=== PATIENT | female | born 1985 ===

== ENCOUNTER 2017-01-09 23:38 | Emergency (ER) | payer SELFPAY ==
[2017-01-10 00:05] VITALS: BMI 22.8
[2017-01-10 00:06] VITALS: BP 114/82; TEMP 98.1
--- NOTE | 2017-01-10 00:23 | ED PDOC ---
Arrival/HPI - General Chief Complaint: Headache Time Seen by Provider: 01/10/17 00:01 Historian: Patient - History of Present Illness Narrative History of Present Illness (Text): 01/10/17 00:19 This 31 yo female presents to this ED c/o nasal congestion, sinuses pressure x 2 weeks. Patient stated symptoms has worsen today. She stated she use Afrin only once today. Denies sob, cp, rash, sore throat, dysphagia, or abnormal agit. Time/Duration: Other (2 weeks) Context: Home Past Medical History - Provider Review Nursing Documentation Reviewed: Yes - Psychiatric Hx Substance Use: No - Anesthesia Hx Anesthesia: No Family/Social History - Physician Review Nursing Documentation Reviewed: Yes Family/Social History: No Known Family HX Smoking Status: Never Smoked Hx Alcohol Use: No Hx Substance Use: No Allergies/Home Meds Allergies/Adverse Reactions: Allergies No Known Allergies Allergy (Verified 01/10/17 00:04) Home Medications: Home Meds Medication Instructions Recorded Confirmed Loratadine/Pseudoephedrine 1 tab PO PRN PRN 01/10/17 01/10/17 [Claritin-D 24 Hour Tablet] Review of Systems - Review of Systems Constitutional: Normal. absent: Fatigue, Weight Change, Fevers Eyes: Normal ENT: Rhinorrhea, Sinus Congestion Respiratory: Normal. absent: SOB, Cough, Sputum, Wheezing Cardiovascular: Normal. absent: Chest Pain, Palpitations Gastrointestinal: Normal Genitourinary Female: Normal Musculoskeletal: Normal Skin: Normal Neurological: Normal Endocrine: Normal Hemo/Lymphatic: Normal Psychiatric: Normal Physical Exam Vital Signs Temp Pulse Resp BP Pulse Ox 01/10/17 00:05 98.1 F 100 H 15 114/82 100 Temperature: Afebrile Blood Pressure: Normal Pulse: Regular Respiratory Rate: Normal Appearance: Positive for: Well-Appearing, Non-Toxic, Comfortable Pain Distress: None Mental Status: Positive for: Alert and Oriented X 3 - Systems Exam Head: Present: Atraumatic, Normocephalic Pupils: Present: PERRL Extroacular Muscles: Present: EOMI Conjunctiva: Present: Normal Ears: Present: Normal, NORMAL TM, Normal Canal. No: Erythema, TM Bulging Mouth: Present: Moist Mucous Membranes, Normal Lips, Normal Tounge, Normal Teeth. No: Drooling Pharnyx: Present: Normal. No: ERYTHEMA, EXUDATE, TONSILS ENLARGED Nose (External): Present: Atraumatic Nose (Internal): Present: Rhinorrhea Neck: Present: Normal Range of Motion Respiratory/Chest: Present: Clear to Auscultation, Good Air Exchange. No: Respiratory Distress, Accessory Muscle Use Cardiovascular: Present: Regular Rate and Rhythm, Normal S1, S2. No: Murmurs Abdomen: Present: Normal Bowel Sounds. No: Tenderness, Distention, Peritoneal Signs Back: Present: Normal Inspection. No: CVA Tenderness Upper Extremity: Present: Normal Inspection. No: Cyanosis, Edema Lower Extremity: Present: Normal Inspection. No: Edema Neurological: Present: GCS=15, CN II-XII Intact, Speech Normal Skin: Present: Warm, Dry, Normal Color. No: Rashes Psychiatric: Present: Alert, Oriented x 3, Normal Insight, Normal Concentration Medical Decision Making ED Course and Treatment: 01/10/17 01:24 Re-evaluation. Patient feels better. Discussed results and plan with patient who expresses understanding. All questions answered and there is agreement with the plan to discharge home with instructions. Patient stable for discharge. Return if symptoms persist or worsen. Re-evaluation Time: 01:24 Reassessment Condition: Re-examined, Improved - Medication Orders Current Medication Orders: Discontinued Medications Azithromycin (Zithromax) 500 mg PO STAT STA PRN Reason: Protocol Stop: 01/10/17 00:24 Last Admin: 01/10/17 00:39 Dose: 500 MG Prednisone (Prednisone Tab) 60 mg PO STAT ONE Stop: 01/10/17 00:24 Last Admin: 01/10/17 00:38 Dose: 60 MG Disposition/Present on Arrival - Present on Arrival Any Indicators Present on Arrival: No History of DVT/PE: No History of Uncontrolled Diabetes: No Urinary Catheter: No History of Decub. Ulcer: No History Surgical Site Infection Following: None - Disposition Have Diagnosis and Disposition been Completed?: Yes Diagnosis: Sinusitis Disposition: HOME/ ROUTINE Disposition Time: 01:25 Patient Plan: Discharge Condition: GOOD Discharge Instructions (ExitCare): Sinusitis (ED) Additional Instructions: Call private doctor for follow up visit in 1-2 days. take medication as instructed. return to emergency if symptoms worsen. Prescriptions: Prednisone [Deltasone] 60 mg PO DAILY #12 tablet Azithromycin [Z-Asif] 250 mg PO DAILY #4 tab Referrals: [facility] [Outside] - Follow up with primary Forms: WORK NOTE
[2017-01-10 02:09] VITALS: PULSE 98; RESP 16; O2SAT 98
== END 2017-01-10 02:10 | disposition home or self-care (01) ==
LOC: ED 23:38
DX: J32.9 Chronic sinusitis, unspecified (principal)

== ENCOUNTER 2017-03-21 05:50 | Emergency (ER) | payer MEDICAID, OTHER ==
[2017-03-21 05:56] VITALS: BMI 22.6
[2017-03-21 05:57] VITALS: RESP 14; O2SAT 98
[2017-03-21 06:00] VITALS: TEMP 98.2
--- NOTE | 2017-03-21 06:04 | ED PDOC ---
Arrival/HPI - General Time Seen by Provider: 03/21/17 05:57 Historian: Patient - History of Present Illness Narrative History of Present Illness (Text): 03/21/17 06:04 Khadijah Lanier is a 31 year old female who presents to the Emergency department complaining of nasal congestion. Patient states she has been experiencing nasal/sinus congestion with associated frontal headache pressure since yesterday morning. Patient denies any fever, chills, shortness of breath, nausea, vomiting, neck pain, headache, dizziness, or any other complaints. Time/Duration: Other (yesterday) Symptom Onset: Gradual Symptom Course: Unchanged Quality: Pressure Activities at Onset: Rest, Light Context: Home Past Medical History - Provider Review Nursing Documentation Reviewed: Yes - Psychiatric Hx Substance Use: No - Anesthesia Hx Anesthesia: No Family/Social History - Physician Review Nursing Documentation Reviewed: Yes Family/Social History: No Known Family HX Smoking Status: Never Smoked Hx Alcohol Use: No Hx Substance Use: No Allergies/Home Meds Allergies/Adverse Reactions: Allergies No Known Allergies Allergy (Verified 03/21/17 05:57) Review of Systems - Physician Review All systems were reviewed & negative as marked: Yes - Review of Systems Constitutional: Normal. absent: Fevers Eyes: Normal ENT: Sinus Congestion Respiratory: Normal. absent: SOB, Cough Cardiovascular: Normal. absent: Chest Pain Gastrointestinal: Normal. absent: Abdominal Pain, Diarrhea, Nausea, Vomiting Genitourinary Female: Normal. absent: Dysuria, Frequency, Hematuria, Urine Output Changes Musculoskeletal: Normal. absent: Back Pain, Neck Pain Skin: Normal. absent: Rash Neurological: Headache. absent: Dizziness Endocrine: Normal Hemo/Lymphatic: Normal Psychiatric: Normal Physical Exam Vital Signs Reviewed: Yes Vital Signs Temp Pulse Resp BP Pulse Ox 03/21/17 06:49 71 14 109/76 98 03/21/17 05:57 98.2 F 82 14 108/72 98 Temperature: Afebrile Blood Pressure: Normal Pulse: Regular Respiratory Rate: Normal Appearance: Positive for: Well-Appearing, Non-Toxic, Comfortable Pain Distress: None Mental Status: Positive for: Alert and Oriented X 3 - Systems Exam Head: Present: Atraumatic, Normocephalic Pupils: Present: PERRL Extroacular Muscles: Present: EOMI Conjunctiva: Present: Normal Ears: Present: Normal, NORMAL TM, Normal Canal. No: Erythema, TM Bulging, Fluid , TM Perf Mouth: Present: Moist Mucous Membranes Pharnyx: Present: Normal. No: ERYTHEMA, EXUDATE, TONSILS ENLARGED, Peritonsilar Swelling, Uvular Deviation, Muffled/Hoarse Voice, Strider, Soft Palate/Uvular Edema Neck: Present: Normal Range of Motion Respiratory/Chest: Present: Clear to Auscultation, Good Air Exchange. No: Respiratory Distress, Accessory Muscle Use Cardiovascular: Present: Regular Rate and Rhythm, Normal S1, S2. No: Murmurs Abdomen: Present: Normal Bowel Sounds. No: Tenderness, Distention, Peritoneal Signs Upper Extremity: Present: Normal Inspection. No: Cyanosis, Edema Lower Extremity: Present: Normal Inspection. No: Edema Neurological: Present: GCS=15, CN II-XII Intact, Speech Normal Skin: Present: Warm, Dry, Normal Color. No: Rashes Psychiatric: Present: Alert, Oriented x 3, Normal Insight, Normal Concentration Medical Decision Making ED Course and Treatment: 03/21/17 06:04 Impression: 31 year old female complaining of nasal/sinus congestion and frontal headache since yesterday. Differential Diagnosis include but are not limited to: sinusitis Plan: -- Tylenol -- Levaquin -- Prednisone -- Reassess and disposition Prior Visits: Notes and results from previous visits were reviewed. On 01/09/2017, pt was seen in the Emergency department for sinus congestion and headache. Pt was d/c home with Mark and a Z-ashlyn. Progress Notes: Patient is well-appearing and in no acute distress. I have discussed the results and plan with the patient, who expresses understanding. Patient in agreement with plan to discharged home. Patient is stable for discharge. Patient was instructed to follow up with physician/clinic in 1-2 days or return if symptoms worsen or new concerning symptoms arise. - Medication Orders Current Medication Orders: Discontinued Medications Acetaminophen (Tylenol 325mg Tab) 650 mg PO STAT STA Stop: 03/21/17 06:10 Last Admin: 03/21/17 06:29 Dose: 650 mg Levofloxacin (Levaquin) 500 mg PO STAT STA Stop: 03/21/17 06:10 Last Admin: 03/21/17 06:29 Dose: 500 mg Prednisone (Prednisone Tab) 60 mg PO ONCE STA Stop: 03/21/17 06:10 Last Admin: 03/21/17 06:29 Dose: 60 mg - Scribe Statement The provider has reviewed the documentation as recorded by the Shadyibmoris Voss All medical record entries made by the Nyla were at my direction and personally dictated by me. I have reviewed the chart and agree that the record accurately reflects my personal performance of the history, physical exam, medical decision making, and the department course for this patient. I have also personally directed, reviewed, and agree with the discharge instructions and disposition. Disposition/Present on Arrival - Present on Arrival Any Indicators Present on Arrival: No History of DVT/PE: No History of Uncontrolled Diabetes: No Urinary Catheter: No History Surgical Site Infection Following: None - Disposition Have Diagnosis and Disposition been Completed?: Yes Diagnosis: Sinusitis Disposition: HOME/ ROUTINE Disposition Time: 06:30 Condition: GOOD Discharge Instructions (ExitCare): Sinusitis (ED) Print Language: BELARUSIAN Prescriptions: levoFLOXacin [Levaquin] 500 mg PO DAILY #10 tab predniSONE [predniSONE Tab] 20 mg PO TID #15 tab Referrals: PCP,NO [Primary Care Provider] - Follow up with primary
[2017-03-21] MEDS ORDERED: levoFLOXacin 500 MG TAB PO STA (06:09)
[2017-03-21 06:50] VITALS: BP 109/76; PULSE 71
== END 2017-03-21 06:50 | disposition home or self-care (01) ==
LOC: ED 05:50
DX: J32.9 Chronic sinusitis, unspecified (principal)

== ENCOUNTER 2017-04-27 16:00 | Emergency (ER) | payer MEDICAID, OTHER ==
[2017-04-27 16:18] VITALS: BMI 23.3
[2017-04-27 16:22] VITALS: TEMP 98.6
[2017-04-27] MEDS ORDERED: Fluticasone Nasal 50 mcg/Spray NS STA (17:29)
--- NOTE | 2017-04-27 18:02 | ED PDOC ---
Arrival/HPI - General Chief Complaint: Cough, Cold, Congestion Time Seen by Provider: 04/27/17 17:29 Historian: Patient - History of Present Illness Narrative History of Present Illness (Text): 04/27/17 17:59 Patient c/o nasal congestion and sinus pressure started from yesterday. patient denies any fever, cough or other symptoms. Patient denies sick contacts/ recent traveling. Time/Duration: Other (2 days.) Symptom Onset: Gradual Symptom Course: Unchanged Quality: Unable to Describe Severity Level: 3 Past Medical History - Provider Review Nursing Documentation Reviewed: Yes - Travel History Have you recently traveled outside [place] w/in the past 3 mons?: No - Past History Past History: Non-Contributing - Infectious Disease Hx of Infectious Diseases: None - Genitourinary/Gynecological Hx Genitourinary Disorders: No - Psychiatric Hx Psychophysiologic Disorder: No Hx Substance Use: No - Anesthesia Hx Anesthesia: No Family/Social History Family/Social History: Unknown Family HX Smoking Status: Never Smoked Hx Alcohol Use: No Hx Substance Use: No Allergies/Home Meds Allergies/Adverse Reactions: Allergies No Known Allergies Allergy (Verified 03/21/17 05:57) Review of Systems - Physician Review All systems were reviewed & negative as marked: Yes - Review of Systems ENT: Sinus Congestion Physical Exam Vital Signs Temp Pulse Resp BP Pulse Ox 04/27/17 16:00 98.6 F 90 16 101/64 10 L Temperature: Afebrile Blood Pressure: Normal Pulse: Regular Respiratory Rate: Normal Appearance: Positive for: Well-Appearing, Non-Toxic, Comfortable Pain Distress: None Mental Status: Positive for: Alert and Oriented X 3 - Systems Exam Head: Present: Atraumatic, Normocephalic Pupils: Present: PERRL Extroacular Muscles: Present: EOMI Conjunctiva: Present: Normal Ears: Present: Normal, NORMAL TM, Normal Canal. No: Erythema, TM Bulging Mouth: Present: Moist Mucous Membranes, Normal Lips, Normal Tounge. No: Drooling Pharnyx: Present: Normal. No: ERYTHEMA, EXUDATE, TONSILS ENLARGED, Uvular Deviation Nose (External): Present: Atraumatic Nose (Internal): Present: Normal Inspection, Moist, Clear Mucous. No: No Active Bleeding Neck: Present: Normal Range of Motion Respiratory/Chest: Present: Clear to Auscultation, Good Air Exchange. No: Respiratory Distress Cardiovascular: Present: Regular Rate and Rhythm, Normal S1, S2. No: Murmurs Abdomen: Present: Normal Bowel Sounds. No: Tenderness, Distention Neurological: Present: GCS=15, CN II-XII Intact, Speech Normal Skin: Present: Warm, Dry, Normal Color. No: Rashes Psychiatric: Present: Alert, Oriented x 3, Normal Insight, Normal Concentration Medical Decision Making ED Course and Treatment: 04/27/17 18:04 Patient was treated with Sudafed and Flonase. Patient will be d/c home with PMD follow up. - Medication Orders Current Medication Orders: Discontinued Medications Fluticasone Propionate (Flonase) 1 actuation NS STAT STA Stop: 04/27/17 17:30 Last Admin: 04/27/17 17:53 Dose: 1 puff Pseudoephedrine HCl (Sudafed Tab) 30 mg PO STAT STA Stop: 04/27/17 17:30 Last Admin: 04/27/17 17:53 Dose: 30 mg Disposition/Present on Arrival - Present on Arrival Any Indicators Present on Arrival: No History of DVT/PE: No History of Uncontrolled Diabetes: No Urinary Catheter: No History of Decub. Ulcer: No History Surgical Site Infection Following: None - Disposition Have Diagnosis and Disposition been Completed?: Yes Diagnosis: Rhinitis Disposition: HOME/ ROUTINE Disposition Time: 18:05 Patient Plan: Discharge Patient Problems: Current Active Problems Problem Status Onset Rhinitis Acute Condition: STABLE Discharge Instructions (ExitCare): Cold Symptoms (ED) Print Language: NAMIBIAN Additional Instructions: Follow up in Clinic within 2-3 days. return to ED if feel worse. Prescriptions: Desloratadine/Pseudoephedrine [Clarinex-D 12 Hour Tablet] 1 each PO Q12 #14 tbmp.12hr Fluticasone Propionate [Flonase] 1 spr NS BID #1 spr Referrals: [facility] at [facility] [place] [Outside] - Follow up with primary
[2017-04-27 18:08] VITALS: BP 107/59; PULSE 65; RESP 18; O2SAT 100
== END 2017-04-27 18:13 | disposition home or self-care (01) ==
LOC: ED 16:00
DX: J31.0 Chronic rhinitis (principal)